=== PATIENT | male | born 1940 | race Caucasian/White ===

== ENCOUNTER 2017-09-21 10:15 | Inpatient (IN) ==
[2017-09-21] MEDS ORDERED: ZOFRAN INJ 4 MG VIAL IVP ONE (10:45)
[2017-09-21] MEDS ORDERED: MORPHINE SULFATE INJ 4 MG IVP ONE (10:45)
--- NOTE | 2017-09-21 10:45 | DR.ABDMALE ---
HPI Time seen Time seen: 10:37 PCP Primary Care Physician: DASIA GAONA HPI comment HPI Comment: SEVERE BURNING SHARP DIFFUSE ABDOMINAL PAIN NOT RESPONDING TO HOME PAIN MED AND GERD MEDS. NO FEVER OR DYSURIA. NO FEVER. WORSE PAIN EVER. TAKES NORCO FOR CHRONIC BACK AND JOINT PAIN. Complaint Chief Complaint Doctors Comments: ABDOMINAL PAIN SINCE THIS AM. Chief Complaint:: PT C/O HAVING CRUSING ABD PAIN THAT COMES AND GOES AND THAT HE TOOK HIS AM MEDS FOR HIS STOMACH AND IT DID NOT HELP.. PT STATES THIS IS THE WORST PAIN HE HAD, PT IS SAY "O" AND HOLDING HIS STOMACH . Reviewed Nurses Notes Review: Yes Mode of arrival Mode of Arrival: Ambulatory Timing Onset of Chief Complaint: 09/21/17 Came on: Suddenly Duration Duration: Constant Duration: Hours Location Location: Diffuse Severity Severity: Severe Quality Quality: Burning and Sharp Context Onset: Suddenly History of: None Modifying factors Worsening Factors: Food Improving Factors: Nothing Associated signs and symptoms Associated Signs and Symptoms: Nausea PMH PMH Past Medical History: Yes Past Medical History: GERD Past Surgical History: Yes Surgical History: Cholecystectomy Past Surgical History Comment: HIPS, NECK, Family History History of Family Medical Conditions: No Social History Does patient currently use any type of tobacco product: No Have you used tobacco products in the last 12 months: No Type of Tobacco Use: None Does any household member use tobacco: No Alcohol Use: None Do you use any recreational Drugs:: No Lives With: Alone Lives Where: Home infectious screening In the last 2 months have you had wt loss of >10#?: NO Have you had fever, night sweats or hemotysis?: No Have you traveled outside the country in the last 6 months?: No ROS Review of Systems Constitutional: No Symptoms Reported Eyes: No Symptoms Reported ENTM: No Symptoms Reported Respiratoy: Short of Breath (ON EXERSION) Cardiovascular: No Symptoms Reported Gastrointestinal/Abdominal: Abdominal Pain and Nausea; negative Constipation Genitourinary: No Symptoms Reported Neurological: No Symptoms Reported Musculoskeletal: Back Pain, Back, Shoulder, Hip and Other (THESE ARE CHRONIC PAIN.) Integumentary: No Symptoms Reported Hematologic/Lymphatic: No Symptoms Reported Endocrine: No Symptoms Reported Psychiatric: No Symptoms Reported All Other Systems: Reviewed and Negative PE Vital Signs Vital Signs: Temp Pulse Pulse Resp BP BP Pulse Ox 09/21/17 13:45 62 16 155/83 94 L 09/21/17 13:15 57 L 16 137/79 94 L 09/21/17 12:45 54 L 17 137/75 94 L 09/21/17 11:45 57 L 20 149/72 95 09/21/17 11:15 146/76 09/21/17 10:17 98.1 F 55 L 20 180/86 95 General Limitations: No Limitations General Appearance: Alert and In No Apparent Distress Head Head Exam: Normal Inspection Eyes Eye exam: Normal Appearance ENT ENT Exam: Normal Exam Neck Neck Exam: Normal Inspection Chest Chest Inspection: Normal Inspection Respiratory Respiratory Exam: Normal Lung Sounds Bilat Respiratory Exam: Bilateral: Clear to Auscultation Cardiovascular Cardiovascular Exam: Regular Rate, Normal Rhythm and Normal Heart Sounds Abdominal Exam Abdominal Exam: Normal Inspection, Normal Bowel Sounds, Distention and Tenderness Rectal Rectal Exam: Deferred Back Back Exam: Paraspinal Tenderness Extremeties Extremities Exam: Normal Inspection Exam: Male: Normal Inspection Neurologic Neurological Exam: Alert, Oriented X3 and CN II-XII Intact; negative Motor Sensory Deficit Psychiatric Psychiatric Exam: Normal Affect, Normal Mood and Anxious Skin Skin Exam: Warm, Dry, Intact and Normal Color MDM Differential Diagnosis Differential Diagnosis: Bowel Obstruction, Constipation, Diverticular disease, Gastritus/PUD, Urinary tract infection and Urolithiasis COURSE Treatment Treatment: SEE ORDERS. ROR Labs Reviewed Laboratory Results Reviewed?: Yes Result Diagrams: 09/21/17 10:33 09/21/17 10:33 Laboratory: WBC 9.5 X10^3/uL (3.6-10.0) 09/21/17 10:33 RBC 5.08 X10^6/uL (4.7-6.0) 09/21/17 10:33 Hgb 16.1 g/dL (13.5-18.0) 09/21/17 10:33 Hct 45.5 % (42.0-54.0) 09/21/17 10:33 MCV 89.5 fL (80.0-100.0) 09/21/17 10:33 MCH 31.6 pg (27.0-34.0) 09/21/17 10:33 MCHC 35.3 g/dL (33.0-35.0) H 09/21/17 10:33 RDW 13.5 % (11.6-16.5) 09/21/17 10:33 Plt Count 215 X10^3/uL (150.0-450.0) 09/21/17 10:33 MPV 7.3 fL (7.4-11.0) L 09/21/17 10:33 Neut % (Auto) 67.1 % (42.0-75.0) 09/21/17 10:33 Lymph % (Auto) 22.0 % (21.0-51.0) 09/21/17 10:33 [place] % (Auto) 8.2 % (0.0-13.0) 09/21/17 10:33 Eos % (Auto) 1.6 % (0.9-2.9) 09/21/17 10:33 Baso % (Auto) 1.1 % (0.2-1.0) H 09/21/17 10:33 Neut # (Auto) 6.4 x10^3/uL (2.2-4.8) H 09/21/17 10:33 Lymph # (Auto) 2.1 X10^3/uL (1.3-2.9) 09/21/17 10:33 [place] # (Auto) 0.8 x10^3/uL (0.3-0.8) 09/21/17 10:33 Eos # (Auto) 0.2 x10^3/uL (0.0-0.2) 09/21/17 10:33 Baso # (Auto) 0.1 X10^3/uL (0.0-0.1) 09/21/17 10:33 Absolute Nucleated RBC 0.0 /100WBC 09/21/17 10:33 Sodium 139 mmol/L (136-145) 09/21/17 10:33 Corrected Sodium TNP 09/21/17 10:33 Potassium 3.4 mmol/L (3.5-5.1) L 09/21/17 10:33 Chloride 102 mmol/L (98-107) 09/21/17 10:33 Carbon Dioxide 31.2 mmol/L (21-32) 09/21/17 10:33 BUN 8 mg/dL (7-18) 09/21/17 10:33 Creatinine 0.99 mg/dL (0.70-1.30) 09/21/17 10:33 Est GFR (MDRD) Af Amer > 60 (>60) 09/21/17 10:33 Est GFR (MDRD) Non-Af > 60 (>60) 09/21/17 10:33 Glucose 94 mg/dL (65-99) 09/21/17 10:33 Calcium 8.4 mg/dL (8.5-10.1) L 09/21/17 10:33 Corrected Calcium TNP 09/21/17 10:33 Total Bilirubin 1.70 mg/dL (0.2-1.0) H 09/21/17 10:33 AST 173 Units/L (15-37) H 09/21/17 10:33 ALT 163 Units/L (12-78) H 09/21/17 10:33 Alkaline Phosphatase 188 Units/L (46-116) H 09/21/17 10:33 Total Protein 7.1 g/dL (6.4-8.2) 09/21/17 10:33 Albumin 3.4 g/dL (3.4-5.0) 09/21/17 10:33 Globulin 3.7 g/dL (2.5-4.5) 09/21/17 10:33 Albumin/Globulin Ratio 0.9 Ratio (1.1-2.1) L 09/21/17 10:33 Amylase 191 Units/L (25-115) H 09/21/17 10:33 Lipase 5903 Units/L (73-393) H 09/21/17 10:33 Specimen Type Clean catch urine 09/21/17 10:33 Urine Color Yellow (YELLOW) 09/21/17 10:33 Urine Appearance Clear (CLEAR) 09/21/17 10:33 Urine pH 8.0 (5.0 - 8.0) 09/21/17 10:33 Ur Specific [place] 1.010 (1.000-1.030) 09/21/17 10:33 Urine Protein Negative (NEGATIVE) 09/21/17 10:33 Urine Glucose (UA) Negative (NEGATIVE) 09/21/17 10:33 Urine Ketones Negative (NEGATIVE) 09/21/17 10:33 Urine Occult Blood Negative (NEGATIVE) 09/21/17 10:33 Urine Nitrite Negative (NEGATIVE) 09/21/17 10:33 Urine Bilirubin Negative (NEGATIVE) 09/21/17 10:33 Urine Urobilinogen 1+ (NORMAL) 09/21/17 10:33 Ur Leukocyte Esterase 1+ (NEGATIVE) 09/21/17 10:33 Urine RBC 0-2 /HPF (NONE SEEN) 09/21/17 10:33 Urine WBC 0-2 /HPF (NONE SEEN) 09/21/17 10:33 Ur Squamous Epith Cells Rare /HPF (NEGATIVE) 09/21/17 10:33 Urine Bacteria Negative /HPF (NEGATIVE) 09/21/17 10:33 Ur Culture Indicated? No/not indicated 09/21/17 10:33 XRAY XRAY Interpreted by: Radiologist XRAY Findings: REPORT DISCUSS WITH PATIENT. Diagnosis Discharge Problem: Acute pancreatitis, Abdominal pain
[2017-09-21] MEDS ORDERED: PEPCID 20 MG IV PREMIX* 20 MG/50 ML BAG IV ONE ×2 (10:49→11:00)
[2017-09-21 10:50] LABS: BILIRUBIN,URINE NEGATIVE (NEGATIVE); BLOOD/HEMOGLOBIN,URINE NEGATIVE (NEGATIVE); GLUCOSE, URINE NEGATIVE (NEGATIVE); KETONES,URINE NEGATIVE (NEGATIVE); LEUKOCYTE ESTERASE ,URINE 1+ (NEGATIVE); NITRITES,URINE NEGATIVE (NEGATIVE); PROTEIN,URINE NEGATIVE (NEGATIVE); UROBILINOGEN,URINE 1+ (NORMAL)
[2017-09-21 10:52] LABS: BASOPHILS # (AUTO) 0.1 X10^3/uL (0.0-0.1); BASOPHILS % (AUTO) 1.1 % (0.2-1.0); EOSINOPHILS # (AUTO) 0.2 x10^3/uL (0.0-0.2); EOSINOPHILS % (AUTO) 1.6 % (0.9-2.9); HEMATOCRIT 45.5 % (42.0-54.0); HEMOGLOBIN 16.1 g/dL (13.5-18.0); LYMPHOCYTES # (AUTO) 2.1 X10^3/uL (1.3-2.9); MEAN CORPUSCULAR HEMOGLOBIN 31.6 pg (27.0-34.0); MEAN CORPUSCULAR HGB CONC 35.3 g/dL (33.0-35.0); MEAN CORPUSCULAR VOLUME 89.5 fL (80.0-100.0); MEAN PLATELET VOLUME 7.3 fL (7.4-11.0); MONOCYTES # (AUTO) 0.8 x10^3/uL (0.3-0.8); MONOCYTES % (AUTO) 8.2 % (0.0-13.0); NEUTROPHILS # (AUTO) 6.4 x10^3/uL (2.2-4.8); NEUTROPHILS % (AUTO) 67.1 % (42.0-75.0); PLATELET COUNT 215 X10^3/uL (150.0-450.0); RED BLOOD COUNT 5.08 X10^6/uL (4.7-6.0); RED CELL DISTRIBUTION WIDTH 13.5 % (11.6-16.5); WHITE BLOOD COUNT 9.5 X10^3/uL (3.6-10.0)
[2017-09-21] MEDS ORDERED: MORPHINE SULFATE INJ 4 MG ONE (11:00)
[2017-09-21] MEDS ORDERED: ZOFRAN INJ 4 MG VIAL ONE (11:00)
[2017-09-21 11:03] LABS: ALANINE AMINOTRANSFERASE 163 Units/L (12-78); ALBUMIN 3.4 g/dL (3.4-5.0); ALKALINE PHOSPHATASE 188 Units/L (46-116); AMYLASE 191 Units/L (25-115); APPEARANCE,URINE CLEAR (CLEAR); ASPARTATE AMINO TRANSFERASE 173 Units/L (15-37); BACTERIA,URINE NEGATIVE /HPF (NEGATIVE); BLOOD UREA NITROGEN 8 mg/dL (7-18); CALCIUM 8.4 mg/dL (8.5-10.1); CARBON DIOXIDE 31.2 mmol/L (21-32); CHLORIDE 102 mmol/L (98-107); COLOR,URINE YELLOW (YELLOW); CREATININE 0.99 mg/dL (0.70-1.30); RBC,URINE 0-2 /HPF (NONE SEEN); SODIUM 139 mmol/L (136-145); SQUAMOUS EPITHELIAL CELL,UR RARE /HPF (NEGATIVE); TOTAL PROTEIN 7.1 g/dL (6.4-8.2); eGFR NON BLACK RACES > 60 (>60)
[2017-09-21 11:16] LABS: LIPASE 5903 Units/L (73-393)
--- NOTE | 2017-09-21 11:25 | CT ---
HISTORY: Upper abdominal pain Study: CT abdomen pelvis without contrast Comparison: None Technique: Axial noncontrast images with coronal and sagittal reformats. Dose reduction procedures we re used with mA/kv adjusted for body size. The examination is limited due to the lack of intravenous and oral contrast. The examination was performed in this manner at the sole discretion of the patin g caregiver and without any input from Radiology. Findings: The lung bases are clear with the exception of some mild interstitial lung changes. The liver, spleen , adrenal glands, and pancreas are within normal limits to the limitations of an unenhanced examinati on. Benign calcified granulomas are incidentally noted in the liver and spleen. The patient is status post cholecystectomy. The kidneys are unobstructed and without stones. No ureteral calculi are ident ified. Calcific atherosclerotic changes present in a nondilated abdominal aorta. No intraperitoneal o r retroperitoneal lymphadenopathy of significance is identified. There are no findings suggestive of diverticulitis or colitis. The appendix is not identified with absolute certainty. There are no secon gwen signs of appendicitis present. Examination of the pelvis was somewhat limited by artifact from t he patient's hip prostheses. No pelvic masses, pelvic fluid, or pelvic lymphadenopathy is identified. No lytic or blastic skeletal lesions of significance are present. IMPRESSION: THIS EXAMINATION IS LIMITED DUE TO THE LACK OF INTRAVENOUS AND ORAL CONTRAST. No acute intra-abdominal or intrapelvic abnormality to the limitations of an examination performed wi thout intravenous and without oral contrast. Reported By:
[2017-09-21] MEDS ORDERED: DEMEROL INJ ONE (11:50)
[2017-09-21] MEDS ORDERED: DEMEROL INJ IVP ONE (11:51)
[2017-09-21] MEDS ORDERED: DILAUDID INJ ONE (13:09)
[2017-09-21] MEDS ORDERED: DILAUDID INJ IVP ONE (13:13)
[2017-09-21] MEDS ORDERED: ZOFRAN SYRUP 4 MG UDC PO PRN (13:48)
[2017-09-21] MEDS ORDERED: NARCAN INJ IVP PRN ×2 (13:58→14:47)
[2017-09-21 14:36] VITALS: BMI 29.2
[2017-09-21] MEDS: PROTONIX INJ 40 MG VIAL IVP SCH (14:47)
[2017-09-21] MEDS: NS 1000 ML 1,000 ML IV SCH (14:47)
[2017-09-21 15:38] LABS: CKMB % 1.9 % (<4); CREATINE KINASE MB 2.5 ng/mL (0-4.0); TROPONIN I 0.04 ng/mL (0-1.5)
--- NOTE | 2017-09-21 19:31 | MRI ---
MRI abdomen without contrast MRCP abdomen Indication: Pancreatitis. Acid reflux. Comparison: 09/21/2017 CT Technique: Multiplanar multi sequence imaging through the abdomen without contrast. 3D MRCP images pr ovided. Findings: There is lumbar spine disc degenerative change with relatively clear lower chest. Multileve l lower lumbar spine spinal canal narrowing noted. Bone marrow signal is normal. Visualized bowel loops, kidneys, spleen and stomach show no acute abnormality. Common bile duct is sl ightly prominent at 1 cm on coronal image 18 without obstructing lesion identified. Few tiny renal cy sts noted. Vascular flow voids appear normal. No signal decrease on out of phase imaging to suggest h epatic steatosis identified. The adrenal glands are normal. The left lobe of the liver appears atroph ic, with focal intrahepatic biliary dilatation seen in the left lobe of the liver. This is best demon strated on coronal images 43 through 24 of series 1001 and on axial image 8 through 11 of series 701. No convincing intrahepatic stone or lesion identified. Minimal peripancreatic high signal is seen only on coronal images 40 through 69 of the MRCP 1001 sequ ence, with the pancreas gland itself appear relatively normal. Impression: 1. Focal left lobe liver atrophy with intrahepatic biliary dilatation and dilatation of the common bi le duct as well as the left hepatic duct. No obvious obstructing lesion, mass or stone convincingly d emonstrated. Nevertheless, follow-up with gastroenterology/GI surgery is recommended to exclude under lying cholangiocarcinoma or stone. Follow-up nonemergent MR with contrast to exclude small lesion is recommended. ERCP may be needed. 3. Minimal peripancreatic fluid without marked glandular swelling could represent very early pancreat itis. Reported By:
[2017-09-21 20:38] LABS: CKMB % 1.7 % (<4); CREATINE KINASE MB 1.9 ng/mL (0-4.0); TROPONIN I 0.03 ng/mL (0-1.5)
[2017-09-22] MEDS: PROTONIX INJ 40 MG VIAL IVP SCH ×2 (00:18→08:31)
[2017-09-22 02:41] LABS: CKMB % 1.3 % (<4); CREATINE KINASE MB 1.2 ng/mL (0-4.0); TROPONIN I 0.03 ng/mL (0-1.5)
[2017-09-22] MEDS: NS 1000 ML 1,000 ML IV SCH ×2 (03:23→16:44)
[2017-09-22 05:16] LABS: BASOPHILS % (AUTO) 0.4 % (0.2-1.0); EOSINOPHILS # (AUTO) 0.2 x10^3/uL (0.0-0.2); EOSINOPHILS % (AUTO) 1.6 % (0.9-2.9); HEMATOCRIT 42.7 % (42.0-54.0); LYMPHOCYTES # (AUTO) 1.2 X10^3/uL (1.3-2.9); MEAN CORPUSCULAR HEMOGLOBIN 31.6 pg (27.0-34.0); MEAN CORPUSCULAR VOLUME 90.3 fL (80.0-100.0); MEAN PLATELET VOLUME 7.5 fL (7.4-11.0); MONOCYTES # (AUTO) 0.5 x10^3/uL (0.3-0.8); NEUTROPHILS # (AUTO) 8.3 x10^3/uL (2.2-4.8); PLATELET COUNT 208 X10^3/uL (150.0-450.0); RED BLOOD COUNT 4.73 X10^6/uL (4.7-6.0); RED CELL DISTRIBUTION WIDTH 13.6 % (11.6-16.5); WHITE BLOOD COUNT 10.2 X10^3/uL (3.6-10.0)
[2017-09-22 05:20] LABS: ALANINE AMINOTRANSFERASE 252 Units/L (12-78); ALKALINE PHOSPHATASE 229 Units/L (46-116); ASPARTATE AMINO TRANSFERASE 221 Units/L (15-37); BLOOD UREA NITROGEN 8 mg/dL (7-18); CALCIUM 8.5 mg/dL (8.5-10.1); CARBON DIOXIDE 30.5 mmol/L (21-32); CHLORIDE 104 mmol/L (98-107); COR CA(FOR HYPOALB) 9.3 mg/dL (8.5-10.1); CREATININE 0.94 mg/dL (0.70-1.30); SODIUM 138 mmol/L (136-145); TOTAL PROTEIN 6.3 g/dL (6.4-8.2); eGFR NON BLACK RACES > 60 (>60)
[2017-09-22 05:24] LABS: AMYLASE 297 Units/L (25-115)
[2017-09-22 05:39] LABS: LIPASE 3762 Units/L (73-393)
[2017-09-22] MEDS: DILAUDID INJ IVP PRN ×2 (08:31→16:14)
[2017-09-22] MEDS ORDERED: PEPCID 20 MG IV PREMIX* 20 MG/50 ML BAG IV SCH (09:00)
[2017-09-22] MEDS ORDERED: PERCOCET TAB 5/325 MG ONE (10:18)
--- NOTE | 2017-09-22 12:08 | DR.H&P ---
H&P - History & Physical for Day of: H&P Date: 09/21/17 - Chief Complaint Chief Complaint: SEVERE ABDOMINAL PAIN - History of Present Illness History of Present Illness: 77 WM ER ADMISSION WITH CO HAVING CRUSING ABD PAIN THAT COMES AND GOES AND THAT HE TOOK HIS AM MEDS FOR HIS STOMACH AND IT DID NOT HELP. PT STATES THIS IS THE WORST PAIN HE HAD, PT IS SAY "O" AND HOLDING HIS STOMACH, PER ER REPORT. PT HAS PMH OF GERD UNDER THE CARE OF DR HERRERA IN [place]. PT HAS OA AND CHRONIC BACK PAIN. STATES HE HAS HAD GALLBLADDER REMOVED, DENIES HX OF GALLSTONES. PT HAD ELEVATED AMYLASE LIPASE AND LFTS ON ER LABS. CT ABD PELVIS IN ER AND MRCP. PT ADMITTED FOR PAIN CONTROL TREATMENT OF PANCREATITS AND ACUTE LIVER ABNORMALITY - Past Medical History Past Medical History: Arthritis, GERD - Past Surgical History Surgical History: Cholecystectomy, Ortho Surgery - Social History Does patient currently use any type of tobacco product: No Have you used tobacco products in the last 12 months: No Type of Tobacco Use: None Does any household member use tobacco: No Alcohol Use: None Drug Use: None - Medications Home Medications: No Known Drug Allergies Allergy (Verified 09/21/17 10:16) CONTINUE taking the following medications atorvastatin 1 tab PO HS 09/21/17 [History] naproxen 1 tab PO BID 09/21/17 [History] oxybutynin chloride 1 tab PO DAILY 09/21/17 [History] tamsulosin 1 cap PO DAILY 09/21/17 [History] - Review of Systems Constitutional: Malaise Eyes: No Symptoms Reported ENT: No Symptoms Reported Respiratory: No Symptoms Reported Cardiovascular: No Symptoms Reported Gastrointestinal: Nausea, Abdominal Pain. denies: Diarrhea, Constipation Genitourinary: No Symptoms Reported Musculoskeletal: Back Pain Skin: No Symptoms Reported Neurological: No Symptoms Reported - Physical Exam Vital Signs: Temperature 98.5 F Pulse Rate [Right Brachial] 67 Pulse Rate 55 Respiratory Rate 20 Blood Pressure [Left Arm] 146/69 Blood Pressure 180/86 O2 Sat by Pulse Oximetry 94 Oriented: Normal Eyes: Normal Ear: Normal Nose: Normal Throat: Normal Respiratory: Clear Throughout Cardiovascular: Normal. negative: Edema : Normal Auscultation: Bowel Sounds: Increased Tenderness: Diffuse, RUQ, Epigastric Skin: Normal Musculoskeletal: Back:Lumbar Psychiatric: Anxiety Affect: Anxious Speech Pattern: Clear, Appropriate - Assessment/Plan (1) Abdominal pain Qualifiers: Abdominal location: generalized Qualified Code(s): R10.84 - Generalized abdominal pain Status: Acute Plan: ADMIT, NPO. IV HYDRATION AND PAIN CONTROL, VERIFY HOME MEDS. NAUSEA CONTROL, BP MONITORING. REPEAT AM AMYLASE LIPASE, MRCP RESULTS ON CHART (2) Acute disorder of liver Status: Acute (3) Acute pancreatitis Qualifiers: Pancreatitis type: unspecified pancreatitis type Acute pancreatitis complication: unspecified Qualified Code(s): K85.90 - Acute pancreatitis without necrosis or infection, unspecified Status: Acute (4) GERD (gastroesophageal reflux disease) Status: Acute (5) Arthralgia Status: Acute - Allergies Allergies/Adverse Reactions: Allergies Allergy/AdvReac Type Severity Reaction Status Date / Time No Known Drug Allergies Allergy Verified 09/21/17 10:16
[2017-09-22] MEDS ORDERED: ZOFRAN INJ 4 MG VIAL IVP ONE (16:36)
[2017-09-22 16:46] VITALS: BP 139/83
--- NOTE | 2017-10-14 17:28 | PCM.DCPLAN ---
Discharge Summary - Admission Date Date of Admission: 09/21/17 - Discharge Date Discharge Date: 09/22/17 - Admission Diagnoses (1) Abdominal pain Status: Acute (2) Acute disorder of liver Status: Acute (3) Acute pancreatitis Status: Acute (4) Arthralgia Status: Acute (5) GERD (gastroesophageal reflux disease) Status: Acute - Discharge Diagnoses Discharge Diagnosis: SAME ADMISSION DIAGNOSIS - Discharge Medications Discharge Medications: Home Medication List atorvastatin 1 tab PO HS 09/21/17 [History] naproxen 1 tab PO BID 09/21/17 [History] oxybutynin chloride 1 tab PO DAILY 09/21/17 [History] tamsulosin 1 cap PO DAILY 09/21/17 [History] Prescriptions: - Hospital Course Vital Signs: Temperature 98.3 F Pulse Rate [Right Brachial] 63 Pulse Rate 55 Respiratory Rate 18 Blood Pressure [Left Arm] 139/83 Blood Pressure 180/86 O2 Sat by Pulse Oximetry 96 Latest Lab Results: Laboratory Last Values WBC 10.2 X10^3/uL (3.6-10.0) H 09/22/17 04:45 RBC 4.73 X10^6/uL (4.7-6.0) 09/22/17 04:45 Hgb 15.0 g/dL (13.5-18.0) 09/22/17 04:45 Hct 42.7 % (42.0-54.0) 09/22/17 04:45 MCV 90.3 fL (80.0-100.0) 09/22/17 04:45 MCH 31.6 pg (27.0-34.0) 09/22/17 04:45 MCHC 35.0 g/dL (33.0-35.0) 09/22/17 04:45 RDW 13.6 % (11.6-16.5) 09/22/17 04:45 Plt Count 208 X10^3/uL (150.0-450.0) 09/22/17 04:45 MPV 7.5 fL (7.4-11.0) 09/22/17 04:45 Neut % (Auto) 81.0 % (42.0-75.0) H 09/22/17 04:45 Lymph % (Auto) 12.0 % (21.0-51.0) L 09/22/17 04:45 [place] % (Auto) 5.0 % (0.0-13.0) 09/22/17 04:45 Eos % (Auto) 1.6 % (0.9-2.9) 09/22/17 04:45 Baso % (Auto) 0.4 % (0.2-1.0) 09/22/17 04:45 Neut # (Auto) 8.3 x10^3/uL (2.2-4.8) H 09/22/17 04:45 Lymph # (Auto) 1.2 X10^3/uL (1.3-2.9) L 09/22/17 04:45 [place] # (Auto) 0.5 x10^3/uL (0.3-0.8) 09/22/17 04:45 Eos # (Auto) 0.2 x10^3/uL (0.0-0.2) 09/22/17 04:45 Baso # (Auto) 0.0 X10^3/uL (0.0-0.1) 09/22/17 04:45 Absolute Nucleated RBC 0.0 /100WBC 09/22/17 04:45 INR Target Range - 09/21/17 14:30 INR 0.97 (0.8-1.3) 09/21/17 14:30 APTT 29.2 SECONDS (22.9-36.5) 09/21/17 14:30 PTT Comment - 09/21/17 14:30 Sodium 138 mmol/L (136-145) 09/22/17 04:45 Corrected Sodium TNP 09/22/17 04:45 Potassium 3.8 mmol/L (3.5-5.1) 09/22/17 04:45 Chloride 104 mmol/L (98-107) 09/22/17 04:45 Carbon Dioxide 30.5 mmol/L (21-32) 09/22/17 04:45 BUN 8 mg/dL (7-18) 09/22/17 04:45 Creatinine 0.94 mg/dL (0.70-1.30) 09/22/17 04:45 Est GFR (MDRD) Af Amer > 60 (>60) 09/22/17 04:45 Est GFR (MDRD) Non-Af > 60 (>60) 09/22/17 04:45 Glucose 87 mg/dL (65-99) 09/22/17 04:45 Calcium 8.5 mg/dL (8.5-10.1) 09/22/17 04:45 Corrected Calcium 9.3 mg/dL (8.5-10.1) 09/22/17 04:45 Magnesium 2.1 mg/dL (1.7-2.9) 09/21/17 14:30 Total Bilirubin 6.80 mg/dL (0.2-1.0) H 09/22/17 04:45 AST 221 Units/L (15-37) H 09/22/17 04:45 ALT 252 Units/L (12-78) H 09/22/17 04:45 Alkaline Phosphatase 229 Units/L (46-116) H 09/22/17 04:45 Creatine Kinase 92 Units/L (39-308) 09/22/17 02:11 CK-MB (CK-2) 1.2 ng/mL (0-4.0) 09/22/17 02:11 CK/CKMB % Calc 1.3 % (<4) 09/22/17 02:11 Troponin I 0.03 ng/mL (0-1.5) 09/22/17 02:11 Total Protein 6.3 g/dL (6.4-8.2) L 09/22/17 04:45 Albumin 3.0 g/dL (3.4-5.0) L 09/22/17 04:45 Globulin 3.3 g/dL (2.5-4.5) 09/22/17 04:45 Albumin/Globulin Ratio 0.9 Ratio (1.1-2.1) L 09/22/17 04:45 Triglycerides 45 mg/dL (0-150) 09/21/17 20:09 Cholesterol 117 mg/dL (0-200) 09/21/17 20:09 LDL Cholesterol, Calc 69 mg/dL (0-100) 09/21/17 20:09 HDL Cholesterol 39 mg/dL (40-60) L 09/21/17 20:09 Cholesterol/HDL Ratio 3.0 (0.0-5.0) 09/21/17 20:09 Amylase 297 Units/L (25-115) H 09/22/17 04:45 Lipase 3762 Units/L (73-393) H 09/22/17 04:45 Specimen Type Clean catch urine 09/21/17 10:33 Urine Color Yellow (YELLOW) 09/21/17 10:33 Urine Appearance Clear (CLEAR) 09/21/17 10:33 Urine pH 8.0 (5.0 - 8.0) 09/21/17 10:33 Ur Specific [place] 1.010 (1.000-1.030) 09/21/17 10:33 Urine Protein Negative (NEGATIVE) 09/21/17 10:33 Urine Glucose (UA) Negative (NEGATIVE) 09/21/17 10:33 Urine Ketones Negative (NEGATIVE) 09/21/17 10:33 Urine Occult Blood Negative (NEGATIVE) 09/21/17 10:33 Urine Nitrite Negative (NEGATIVE) 09/21/17 10:33 Urine Bilirubin Negative (NEGATIVE) 09/21/17 10:33 Urine Urobilinogen 1+ (NORMAL) 09/21/17 10:33 Ur Leukocyte Esterase 1+ (NEGATIVE) 09/21/17 10:33 Urine RBC 0-2 /HPF (NONE SEEN) 09/21/17 10:33 Urine WBC 0-2 /HPF (NONE SEEN) 09/21/17 10:33 Ur Squamous Epith Cells Rare /HPF (NEGATIVE) 09/21/17 10:33 Urine Bacteria Negative /HPF (NEGATIVE) 09/21/17 10:33 Ur Culture Indicated? No/not indicated 09/21/17 10:33 Hospital Course: 77 WM ER ADMISSION TO ED WITH CO HAVING CRUSHING ABD PAIN THAT COMES AND GOES AND THAT HE TOOK HIS AM MEDS FOR HIS STOMACH AND IT DID NOT HELP. PT HAS PMH OF GERD UNDER THE CARE OF DR HERRREA IN [place]. PT HAS OA AND CHRONIC BACK PAIN. STATES HE HAS HAD GALLBLADDER REMOVED, DENIES HX OF GALLSTONES. PT HAD ELEVATED AMYLASE LIPASE AND LFTS ON ER LABS. CT ABD PELVIS IN ER AND MRCP. PT ADMITTED FOR PAIN CONTROL TREATMENT OF PANCREATITIS AND ACUTE LIVER ABNORMALITY. PATIENT WAS TRANSFERRED TO [facility] FOR FURTHER CARE. - Discharge Plan Disposition: XF [facility] HOSP Condition: Stable - Follow ups/Referrals Follow ups/Referrals: [facility] [Other] (PT TRANSFERRED TO [place]) Bill Costa JR [Primary Care Provider] - 1 WEEK - Instructions
== END 2017-09-22 16:45 | disposition short-term general hospital (02) | DRG 440 ==
LOC: ER 10:15 → OBS 13:51 → MED/SURG 16:53
PROVIDERS: ADMIT Internal Medicine; ATTEND Internal Medicine
DX: R10.84 Generalized abdominal pain; K76.89 Other specified diseases of liver; K21.9 Gastro-esophageal reflux disease without esophagitis; R94.31 Abnormal electrocardiogram [ECG] [EKG]; R94.5 Abnormal results of liver function studies; M25.50 Pain in unspecified joint; K85.80 Other acute pancreatitis without necrosis or infection
CPT/HCPCS: 36415; 74176; 74181; 80053; 80061; 81001; 82150; 82550; 82553; 83690; 83735; 84484; 85025; 85610; 85730; 93005; 93010; 94760; 96365; 96374; 96375; 99284; A4222; C9113; S0028; J1170; J2175; J2270; J2405; J7030